=== PATIENT | female | born 1980 | race Caucasian/White ===

== ENCOUNTER → 2019-02-19 | Outpatient (CLI) | payer OTHER ==
[~2019-02-19] MED LIST: ACHYD1T PO; DCS100C PO; HYDR1TAB8 OP; IBP800T PO; METO-354 PO; NITR-65 PO; PREN1TAB39 PO; [UNRECOGNIZED DRUG - OTHER]
--- NOTE | 2019-02-19 20:35 | Diagnostic Imaging Report ---
INDICATION: Routine screening. COMPARISON: No prior mammograms are available for comparison. This is a baseline study. TECHNIQUE: 2-D and 3-D bilateral screening mammography was performed with CAD. FINDINGS: Both breasts are heterogeneously dense, limiting the sensitivity of mammography. There is a density in the right breast projected at the nipple line posterior depth. This is only seen on the MLO view. No definite corresponding density on the CC view is seen. Additional views are recommended. The left breast is unremarkable. There are no suspicious calcifications. Axillae are unremarkable. IMPRESSION: BI-RADS 0. Right breast density. This most likely represents superimposed tissue but additional views are recommended for further evaluation. Dictated by: Dictated on workstation # [id number]
== END ==
LOC: RAD 12:36
PROVIDERS: ATTEND Nurse Practitioner Family
DX: Z12.31 Encounter for screening mammogram for malignant neoplasm of breast (principal)
CPT/HCPCS: 77067

== ENCOUNTER → 2019-03-07 | Outpatient (CLI) | payer OTHER ==
--- NOTE | 2019-03-07 13:27 | Diagnostic Imaging Report ---
Indication: Right breast density. Patient presents for additional views. Correlation is made with recent screening study from 02/19/2019. Unilateral right 2-D and 3-D diagnostic mammography was performed including conventional 90 degree lateral view as well as spot compression MLO views. Right breast is heterogeneously dense. Additional views fail to demonstrate a discrete mass. Area of density noted in the right breast most likely represents superimposed tissue. No mass or malignant-appearing microcalcifications are seen. Impression: BI-RADS category 1 Additional views fail to demonstrate a discrete mass. Patient may return to routine annual screening mammography. ACR BI-RADS Category 1: Negative. Result letter will be mailed to the patient. Note: At least 10% of breast cancer is not imaged by mammography. Dictated by: Dictated on workstation # [id number]
== END ==
LOC: RAD 13:02
PROVIDERS: ATTEND Nurse Practitioner Family
DX: R92.2 Inconclusive mammogram (principal)